=== PATIENT | female | born 1965 | race African-American/Black ===

== ENCOUNTER 2017-05-15 08:52 | Emergency (ER) | payer OTHER ==
[~2017-05-15] VITALS: Ht 162.6 cm; Wt 75.7 kg
[2017-05-15 09:03] VITALS: BP 126/101
[2017-05-15] MEDS ORDERED: NACL 0.9% 1,000 ML IV SCH (09:13)
[2017-05-15] MEDS ORDERED: fentaNYL 0.05 MG/ML VIAL IVP ONE (09:15)
[2017-05-15] MEDS ORDERED: PROMETHAZINE 25 MG/ML VIAL IVP ONE (09:15)
[2017-05-15] MEDS ORDERED: LORazepam 2 MG/ML VIAL IVP ONE (09:15)
[2017-05-15 09:59] LABS: BASOPHILS # (AUTO) 0.2 K/uL (0.00-0.22); BASOPHILS % (AUTO) 3.8 % (0.0-2.0); EOSINOPHILS # (AUTO) 0.2 K/uL (0-0.4); EOSINOPHILS % (AUTO) 5.5 % (0.0-4.0); HEMATOCRIT 40.7 % (36-48); LYMPHOCYTES # (AUTO) 1.5 K/uL (2.5-16.5); LYMPHOCYTES % (AUTO) 34.2 % (20.5-51.1); MEAN CORPUSCULAR HEMOGLOBIN 26 pg (27-31); MEAN CORPUSCULAR HGB CONC 32 g/dL (33-37); MEAN CORPUSCULAR VOLUME 82 fL (80-94); MONOCYTES # (AUTO) 0.4 K/uL (0.8-1.0); NEUTROPHILS % (AUTO) 46.5 % (42.2-75.2); PLATELET COUNT (AUTO) 214 K/uL (140-450); RED BLOOD CELL COUNT(AUTO) 4.97 MIL/uL (4.20-5.40); RED CELL DISTRIBUTION WIDTH 14.5 % (11.6-13.7); WHITE BLOOD COUNT (AUTO) 4.3 K/uL (4.8-10.8)
[2017-05-15] MEDS ORDERED: LORazepam 2 MG/ML VIAL IM ONE ×2 (10:00→11:10)
[2017-05-15] MEDS ORDERED: fentaNYL 0.05 MG/ML VIAL IM ONE ×2 (10:00→11:10)
[2017-05-15] MEDS ORDERED: PROMETHAZINE 25 MG/ML VIAL IM ONE ×2 (10:00→11:10)
[2017-05-15 10:14] LABS: ANION GAP 11.3 (8-16); CARBON DIOXIDE 32.1 mmol/L (21-32); CREATININE 1.2 mg/dL (0.6-1.3); POTASSIUM 3.4 mmol/L (3.5-5.1)
--- NOTE | 2017-05-15 10:20 | NUR ---
Pt returned from CT and placed in bed 3.
[2017-05-15 10:31] LABS: ALBUMIN 4.1 g/dL (3.4-5.0); TOTAL BILIRUBIN 0.3 mg/dL (0.0-1.0)
[2017-05-15 10:39] LABS: APPEARANCE,URINE HAZY (CLEAR); BILIRUBIN,URINE NEGATIVE (NEGATIVE); BLOOD, URINE NEGATIVE (NEGATIVE); COLOR,URINE YELLOW (YELLOW); LEUKOCYTE ESTERASE ,URINE NEGATIVE (NEGATIVE); NITRITE, URINE NEGATIVE (NEGATIVE); PH,URINE 5.5 (5.0-9.0); UGLUCOSE NEGATIVE (NEGATIVE)
[2017-05-15 10:49] LABS: BARBITURATE, URINE NEGATIVE ng/ml (NEG <=200); BENZODIAZEPINE, URINE POSITIVE ng/mL (NEG <=200); CANNABINOID, URINE NEGATIVE ng/mL (NEG <=50); COCAINE, URINE NEGATIVE ng/mL (NEG <=300); OPIATE, URINE NEGATIVE ng/mL (NEG <=2000); PHENCYCLIDINE SCREEN,URINE NEGATIVE ng/mL (NEG <=25)
[2017-05-15 10:53] LABS: RBC,URINE 0-5 (RARE) /HPF (0-5)
[2017-05-15 10:54] LABS: CALCIUM OXALATE CRYSTALS,UR 30-50 /HPF (None Seen)
[2017-05-15 11:42] VITALS: BP 122/87
--- NOTE | 2017-05-15 11:44 | NUR ---
PATIENT IS A 51 YO FEMALE BIB SELFT FOR FLANK PAIN PATIENT IS AWAKE AND ALERT ABLE TO AMBULATE TO BED 3 FOR [facility].
--- NOTE | 2017-05-15 11:45 | NUR ---
Patient discharged with v/s stable. Written and verbal after care instructions given and explained. Patient alert, oriented and verbalized understanding of instructions. Ambulatory with steady gait. All questions addressed prior to discharge. ID band removed. Patient advised to follow up with PMD. Rx of [employer] TRAMADOL, PYRIDIUM, AND given. Patient educated on indication of medication including possible reaction and side effects. Opportunity to ask questions provided and answered.
== END 2017-05-15 11:45 | disposition home or self-care (01) ==
LOC: MED 08:52
DX: N39.0 Urinary tract infection, site not specified (principal); F11.20 Opioid dependence, uncomplicated; I10 Essential (primary) hypertension; Z88.1 Allergy status to other antibiotic agents; Z88.6 Allergy status to analgesic agent; Z88.8 Allergy status to other drugs, medicaments and biological substances
CPT/HCPCS: 36415; 74176; 80053; 80305; 81001; 81025; 82150; 83690; 84703; 85025; 87086; 96372; 99285; J2060; J2550; J3010